=== PATIENT | female | born 2000 | race Hispanic/Latino ===

== ENCOUNTER 2020-03-27 14:04 | Emergency (ER) | payer SELFPAY ==
[2020-03-27 14:35] LABS: Urine Blood NEGATIVE (NEG); Urine Glucose NEGATIVE (NEG); Urine Protein NEGATIVE (NEG)
[2020-03-27 14:43] LABS: Absolute Lymphocytes (CBC) 1.9 K/uL (0.7-4.9); Basophils % 0.4 % (0-1.3); Hematocrit 40.1 % (36.0-45.0); Lymphocytes % 24.6 % (15.3-44.8); MPV 9.3 fL (7.6-11.3); RBC Red Blood Cell Count 4.49 M/uL (3.86-4.86)
[2020-03-27 14:45] LABS: Protime INR 0.97
[2020-03-27 14:58] LABS: ALT/SGPT 26 U/L (12-78); AST/SGOT 25 U/L (15-37); Albumin 3.9 g/dL (3.4-5.0); Alkaline Phosphatase 77 U/L (45-117); BUN Blood Urea Nitrogen 10 mg/dL (7-18); Bicarbonate 27 mmol/L (21-32); Bilirubin Direct 0.1 mg/dL (0-0.2); Bilirubin Total 0.4 mg/dL (0.2-1.0); Glucose Level 72 mg/dL (74-106); Magnesium 2.2 mg/dL (1.8-2.4); NT PRO-BNP 22 pg/mL (<125); Potassium 3.6 mmol/L (3.5-5.1); Sodium Level 142 mmol/L (136-145); Troponin (Emerg Dept Use Only) < 0.02 ng/mL (0.0-0.045)
--- NOTE | 2020-03-27 16:10 | RAD REPORT ---
EXAM DESCRIPTION: RAD - Chest Single View - 03/27/2020 4:04 pm CLINICAL HISTORY: syncope COMPARISON: None TECHNIQUE: AP portable chest image was obtained 03/27/2020 4:04 pm . FINDINGS: Lungs are clear. Heart and vasculature are normal. No measurable pleural effusion and no p neumothorax. No acute bony abnormality seen. No acute aortic findings suspected. IMPRESSION: No acute cardiopulmonary process.
--- NOTE | 2020-03-27 16:30 | ER ---
Nurse's Notes [facility] Name: Rosina Hunt Age: 19 yrs Sex: Female : 2000 Arrival Date: 03/27/2020 Time: 14:05 Bed 23 Private MD: Diagnosis: Near Syncope Presentation: 03/27 14:08 Coronavirus screen:. Onset of symptoms was March 27, 2020. ll1 14:08 Method Of Arrival: EMS ll1 14:08 Acuity: GARY 3 ll1 14:14 Chief complaint: Patient states: Near syncope event at work today. Sitting in chair and ll1 almost passed out. Became dizzy and lightheaded. Feels a lot better now. Denies Cough/fever. Denies N/V/D. Coronavirus screen: Proceed with normal triage. Patient denies a cough. Patient denies shortness of breath or difficulty breathing. Patient denies measured and/or subjective temperature greater than 100.4F prior to today's visit. Patient denies travel on a cruise ship or to a country the [facility] currently lists as an affected area. Patient denies contact with known and/or suspected case of COVID-19. Ebola Screen: Patient denies travel to an Ebola-affected area in the 21 days before illness onset. Initial Sepsis Screen: Does the patient meet any 2 criteria? No. Patient's initial sepsis screen is negative. Risk Assessment: Do you want to hurt yourself or someone else? Patient reports no desire to harm self or others. 14:36 Initial Sepsis Screen: Does the patient have a suspected source of infection? No. ll1 Patient's initial sepsis screen is negative. 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 - Social history:: Patient/guardian denies using street drugs, Smoking status: Patient denies any tobacco usage or history of. Screenin:36 Abuse screen: Denies threats or abuse. Nutritional screening: No deficits noted. ll1 Tuberculosis screening: No symptoms or risk factors identified. Fall Risk None identified. IV access (20 points). Total Christianson Fall Scale indicates No Risk (0-24 pts). Assessment: 14:35 General: Appears in no apparent distress. Behavior is calm, cooperative, appropriate ll1 for age. Pain: Denies pain. 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 Full function Gait is steady, Speech is normal, Facial symmetry appears normal, Reports a syncopal episode near syncope event at work. Denies headache. Cardiovascular: No deficits noted. Heart tones S1 S2 Capillary refill < 3 seconds JVD is absent Patient's skin is warm and dry. Pulses are all present. Respiratory: No deficits noted. GI: No deficits noted. : No deficits noted. 15:35 Reassessment: Patient appears in no apparent distress at this time. No changes from ll1 previously documented assessment. Patient and/or family updated on plan of care and expected duration. Pain level reassessed. Patient is alert, oriented x 3, equal unlabored respirations, skin warm/dry/pink. 16:35 Reassessment: Patient appears in no apparent distress at this time. No changes from ll1 previously documented assessment. Patient and/or family updated on plan of care and expected duration. Pain level reassessed. Patient is alert, oriented x 3, equal unlabored respirations, skin warm/dry/pink. Vital Signs: 14:14 BP 129 / 82; Pulse 80; Resp 16; Temp 99.0; Pulse Ox 100% ; Pain 0/10; ll1 15:16 BP 125 / 89; Pulse 81; Resp 16; Pulse Ox 100% ; ll1 16:45 BP 112 / 74; Pulse 76; Resp 17; Temp 98.0; Pulse Ox 99% ; Pain 2/10; ll1 ED Course: 14:05 Patient arrived in ED. ll1 14:07 Ratna Benítez, MARCELINO is Primary Nurse. ll1 14:07 Arm band placed on Patient placed in an exam room, on a stretcher. ll1 14:08 Triage completed. ll1 14:08 Vel Perez PA is PHCP. [facility] 14:08 Daniel Redding MD is Attending Physician. jmm 14:36 Patient has correct armband on for positive identification. 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 Pulse ll1 ox on. NIBP on. 16:04 XRAY Chest (1 view) In Process Unspecified. EDMS 16:45 No provider procedures requiring assistance completed. Patient did not have IV access ll1 during this emergency room visit. Administered Medications: 14:14 Drug: NS 0.9% 1000 ml Route: IV; Rate: 1 bolus; Site: right antecubital; ll1 15:00 Follow up: Response: No adverse reaction; RASS: Alert and Calm (0); IV Status: ll1 Completed infusion; IV Intake: 1000ml Intake: 15:00 IV: 1000ml; Total: 1000ml. 1 Outcome: 16:29 Discharge ordered by . yoko 16:47 Patient left the ED. ll1 16:47 Discharged to home ambulatory. 1 16:47 Condition: stable 16:47 Discharge instructions given to patient, Instructed on discharge instructions, follow up and referral plans. Demonstrated understanding of instructions, follow-up care. Signatures: Dispatcher [employer] EDAK Vel Perez PA PA jmm Lewis, Lynsay, RN RN 1
--- NOTE | 2020-03-27 16:30 | EDPHYS ---
Physician Documentation [facility] Name: Rosina Hunt Age: 19 yrs Sex: Female : 2000 Arrival Date: 03/27/2020 Time: 14:05 Bed 23 Private MD: ED Physician Daniel Redding HPI: 03/27 14:09 This 19 yrs old Female presents to ER via EMS with complaints of presyncope. jmm 14:09 The patient has experienced near-syncope, almost passed out. jmm 14:09 Onset: The symptoms/episode began/occurred acutely, just prior to arrival. Duration: jmm This was a single episode. Context: patient states the episode occurred while standing up. Associated injury: The patient did not suffer any apparent associated injury. Associated signs and symptoms: Pertinent negatives: chest pain, shortness of breath. This is a 19 year old female with no chronic medical conditions that presents to the ED with complaints of near syncope which occurred as she was standing up at work. Patient describes the sensation as being light headed. . 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 - Social history:: Patient/guardian denies using street drugs, Smoking status: Patient denies any tobacco usage or history of. ROS: 14:09 Constitutional: Negative for fever, chills, and weight loss, Cardiovascular: Negative jmm for chest pain, palpitations, and edema, Respiratory: Negative for shortness of breath, cough, wheezing, and pleuritic chest pain. 14:09 Neuro: Positive for syncope. 14:09 All other systems are negative. Exam: 14:09 Constitutional: This is a well developed, well nourished patient who is awake, alert, jmm and in no acute distress. Head/Face: atraumatic. Eyes: EOMI, no conjunctival erythema appreciated ENT: Moist Mucus Membranes Neck: Trachea midline, Supple Chest/axilla: Normal chest wall appearance and motion. Cardiovascular: Regular rate and rhythm. No edema appreciated Respiratory: Normal respirations, no respiratory distress appreciated Abdomen/GI: Non distended, soft Back: Normal ROM MS/ Extremity: Moves all extremities, no obvious deformities appreciated, no edema noted to the lower extremities Neuro: Awake and alert, normal gait Psych: Behavior is normal, Mood is normal, Patient is cooperative and pleasant Vital Signs: 14:14 BP 129 / 82; Pulse 80; Resp 16; Temp 99.0; Pulse Ox 100% ; Pain 0/10; ll1 15:16 BP 125 / 89; Pulse 81; Resp 16; Pulse Ox 100% ; ll1 16:45 BP 112 / 74; Pulse 76; Resp 17; Temp 98.0; Pulse Ox 99% ; Pain 2/10; ll1 MDM: 14:13 Patient medically screened. [facility] 16:00 Data reviewed: vital signs, nurses notes, lab test result(s), EKG, radiologic studies, [facility] plain films. Counseling: I had a detailed discussion with the patient and/or guardian regarding: the historical points, exam findings, and any diagnostic results supporting the discharge/admit diagnosis, lab results, radiology results, the need for outpatient follow up, to return to the emergency department if symptoms worsen or persist or if there are any questions or concerns that arise at home. 16:27 ED course: PERC negative. [place] syncope rule negative. ED course: Patient is [facility] advised to follow up with cardiology and otherwise given strict return precautions. Patient understood and agrees with the plan of care. . 03/27 14:09 Order name: Basic Metabolic Panel; Complete Time: 15:14 [facility] 03/27 14:09 Order name: CBC with Diff; Complete Time: 15:14 [facility] 03/27 14:09 Order name: LFT's; Complete Time: 15:14 [facility] 03/27 14:09 Order name: Magnesium; Complete Time: 15:14 [facility] 03/27 14:09 Order name: NT PRO-BNP; Complete Time: 15:14 [facility] 03/27 14:09 Order name: PT-INR; Complete Time: 15:14 [facility] 03/27 14:09 Order name: Troponin (emerg Dept Use Only); Complete Time: 15:14 [facility] 03/27 14:09 Order name: XRAY Chest (1 view); Complete Time: 16:13 [facility] 03/27 14:09 Order name: EKG; Complete Time: 14:10 [facility] 03/27 14:09 Order name: Cardiac monitoring; Complete Time: 14:33 [facility] 03/27 14:09 Order name: EKG - Nurse/Tech; Complete Time: 14:33 [facility] 03/27 14:32 Order name: Urine Dipstick--Ancillary (enter results); Complete Time: 15:14 03/27 14:32 Order name: Urine --Ancillary (enter results); Complete Time: 15:14 03/27 14:09 Order name: IV Saline Lock; Complete Time: 14:14 [facility] 03/27 14:09 Order name: Labs collected and sent; Complete Time: 14:14 [facility] 03/27 14:09 Order name: O2 Per Protocol; Complete Time: 14:14 [facility] 03/27 14:09 Order name: O2 Sat Monitoring; Complete Time: 14:14 [facility] 03/27 14:11 Order name: Urine Dipstick-Ancillary (obtain specimen); Complete Time: 14:33 [facility] 03/27 14:11 Order name: Urine Test (obtain specimen); Complete Time: 14:32 jm Administered Medications: 14:14 Drug: NS 0.9% 1000 ml Route: IV; Rate: 1 bolus; Site: right antecubital; ll1 15:00 Follow up: Response: No adverse reaction; RASS: Alert and Calm (0); IV Status: ll1 Completed infusion; IV Intake: 1000ml Disposition: 03/28 13:20 Co-signature as Attending Physician, Daniel Redding MD I agree with the assessment and [facility] plan of care. Disposition: 03/27/20 16:29 Discharged to Home. Impression: Near Syncope. - Condition is Stable. - Discharge Instructions: Near-Syncope. - Medication Reconciliation Form, Thank You Letter, Antibiotic Education, Prescription Opioid Use form. - Follow up: Private Physician; When: 2 - 3 days; Reason: Recheck today's complaints, Continuance of care, Re-evaluation by your physician. Signatures: Dispatcher [employer] Daniel Lyon MD MD cha Mickail, Joel, PA PA Ratna Westbrook RN RN ll1 Corrections: (The following items were deleted from the chart) 03/27 16:47 16:29 03/27/2020 16:29 Discharged to Home. Impression: Near Syncope. Condition is ll1 Stable. Forms are Medication Reconciliation Form, Thank You Letter, Antibiotic Education, Prescription Opioid Use. Follow up: Private Physician; When: 2 - 3 days; Reason: Recheck today's complaints, Continuance of care, Re-evaluation by your physician. yoko
[2020-03-27 16:52] VITALS: TEMP 99; O2SAT 100
[2020-03-27 16:53] VITALS: BP 125/89
== END 2020-03-27 16:47 | disposition home or self-care (01) ==
LOC: ER 14:04
DX: R55 Syncope and collapse (principal)
CPT/HCPCS: 36415; 71045; 80048; 80076; 81003; 81025; 83735; 83880; 84484; 85025; 85610; 93005; 96360; 99284